=== PATIENT | male | born 1960 | race Caucasian/White ===

== ENCOUNTER 2024-05-14 14:37 | Inpatient (IN) ==
[2024-05-14 15:11] LABS: Basophils # (auto) 0.07 K/uL (0.00-0.20); Basophils % (auto) 0.9 %; Eosinophils # (auto) 0.16 K/uL (0.00-0.50); Hematocrit (blood only) 46.4 % (42.0-52.0); Hemoglobin 15.6 g/dl (14.0-18.0); Immature Granulocytes # (auto) 0.02 K/uL (0.01-0.20); Immature Granulocytes % (auto) 0.2 %; Lymphocytes # (auto) 2.13 K/uL (1.20-3.40); Lymphocytes % (auto) 26.5 %; Mean Corpuscular Hemoglobin 27.9 pg (25.0-34.0); Mean Corpuscular Hgb Conc 33.6 g/dL (32.0-36.0); Mean Platelet Volume 9.8 fL (9.4-12.4); Monocytes # (auto) 0.64 K/uL (0.11-0.59); Neutrophils # (auto) 5.03 K/uL (1.40-6.50); Neutrophils % (auto) 62.4 %; Platelet Count 345 K/uL (130-400); RDW Coefficient of Variation 12.9 % (11.5-14.5); RDW Standard Deviation 38.9 fL (36.4-46.3); Red Blood Count 5.59 M/uL (4.70-6.10); White Blood Count 8.05 K/ul (4.8-10.8)
--- NOTE | 2024-05-14 15:27 | Emergency Department Note ---
Impression & Plan Dyspnea on minimal exertion ED Provider Note NAME: GENO MARIE AGE: 63 SEX: M : 1960 ARRIVES VIA: Walk-In INFORMANT: Patient, ED PROVIDER(S): Dandre Amaro DO CHIEF COMPLAINT: Difficulty breathing HPI: The patient is a 63-year-old male who presented to the emergency department for an evaluation of difficulty breathing. The patient has been noticing problems breathing over the course of the last month. He was seen by his family doctor and treated for an infection. He did not do much better. He is been having worsening breathing especially with any exertion. He denies having any chest pain but he did note some cramping all through his body as well as exertional dyspnea. He was diaphoretic as well. The patient called his family doctor to be seen today but was referred to the emergency department for further evaluation. ROS: See above HPI for pertinent positives & negatives. A total of 10 systems reviewed and were otherwise negative. PAST MEDICAL HISTORY: See Below PAST SURGICAL HISTORY: See Below FAMILY HISTORY: See Below SOCIAL HISTORY: See Below HOME MEDICATIONS: See Below ALLERGIES: See Below VITALS: See Below PHYSICAL EXAMINATION: GENERAL: Patient is awake alert in no acute distress patient is resting comfortably and showing no signs of anxiety EYES: The conjunctivae are clear. The pupils are round and reactive. EARS, NOSE, MOUTH AND THROAT: The nose is without any evidence of any deformity. Mucous membranes are moist. Tongue is midline. NECK: The neck is nontender and supple. RESPIRATORY: Diminished breath sounds are noted in the right lung field compared to the left. There is no tachypnea or conversational dyspnea. CARDIOVASCULAR: Regular rate and rhythm noted there no murmurs rubs or gallops normal S1 normal S2. GASTROINTESTINAL: The abdomen is soft. Abdomen is nontender. MUSCULOSKELETAL/EXTREMITIES: There is no evidence of gross deformity full range of motion is noted in the hips and shoulders. SKIN: There is no obvious evidence of any rash. There are no petechiae, pallor or cyanosis noted. NEUROLOGIC: Patient is awake alert and oriented x3 strength is symmetric patellar reflexes are 2+ bilaterally MEDICAL DECISION MAKING: The patient is a 63-year-old male who presented to the emergency department for an evaluation of difficulty breathing. He was having shortness of breath with exertion. He also noticed some diaphoresis. The patient did have no lower extremity swelling on physical exam or by complaint. He did not have any specific chest pain but given his age and comorbidities it is possible he is describing an anginal equivalent. He does have risk factors for coronary artery disease including hypertension and diet-controlled diabetes. The patient was feeling better at rest. I discussed the patient's laboratory and radiographic studies with him. I also discussed the limitations of the emergency department workup or chest pain with him. Ultimately I did discuss his condition with the on-call [facility] hospitalist. They have agreed to evaluate the patient in the emergency department for further management and disposition. Triage Nursing notes reviewed. Prior medical records reviewed Vital Signs: reviewed and remarkable for elevated blood pressure. Differential diagnosis: Reactive airway disease, pneumonia, pneumothorax, COPD, CHF, infections, cardiac ischemia, pulmonary embolism, musculoskeletal, gastrointestinal, as well as other pathologies. ER treatment provided: See below Diagnostics interpreted by me: ECG: EKG was obtained in the emergency department. My interpretation is normal sinus rhythm at 76 bpm. Nonspecific T wave abnormalities were noted. There was no ectopy. This was compared to a tracing from June 01, 2021. No changes were noted. Cardiac Monitoring: An order was placed for continuous cardiac monitoring. The monitor shows a rate of 82 per minute with sinus rhythm. Laboratory studies: As stated above and show below. Imaging studies: See below. Radiographic imaging was reviewed by myself Consultation(s): I did lizzeth this case with Dr. Fernandez who is on-call for the [facility]. Past Med/Surg History Problem List (Updated 05/14/24 @ 21:34 by Dandre Amaro DO) Dyspnea on minimal exertion (Acute) Medical History Brain aneurysm Surgical History History of cholecystectomy Social History Smoking Status: Never smoker Tobacco Type: Smokeless Tobacco (Dip or Chew) Preferred Language: Austrian Feels Safe at Home: Yes Allergies Allergies Allergy/AdvReac Type Severity Reaction Status Date / Time topiramate [From Topamax] AdvReac Intermediate Hives Unverified 05/14/24 17:54 Home Meds Home Medications Medication Instructions Recorded Confirmed duloxetine 60 mg capsule,delayed 60 mg PO DAILY 06/01/21 05/14/24 release lisinopril 20 mg tablet 20 mg PO DAILY 06/01/21 05/14/24 magnesium oxide 400 mg (241.3 mg 400 mg PO HS 06/01/21 05/14/24 magnesium) tablet metformin 500 mg tablet 500 mg PO BID 06/01/21 05/14/24 ropinirole 0.5 mg tablet 0.5 mg PO DAILY 06/01/21 05/14/24 rosuvastatin 20 mg tablet 20 mg PO DAILY 06/01/21 05/14/24 tramadol 50 mg tablet 50 - 100 mg PO UD 06/01/21 05/14/24 aspirin 81 mg tablet,delayed 81 mg PO DAILY 05/14/24 05/14/24 release atenolol 25 mg tablet 25 mg PO DAILY 05/14/24 05/14/24 cyanocobalamin (vitamin B-12) 1,000 mcg PO DAILY 05/14/24 05/14/24 1,000 mcg tablet (Vitamin B-12) eszopiclone 2 mg tablet 2 mg PO HS 05/14/24 05/14/24 omeprazole 40 mg capsule,delayed 40 mg PO DAILY 05/14/24 05/14/24 release Results & Data (ED) Vital Signs Vital Signs - 24 hr 05/14/24 14:49 05/14/24 16:07 05/14/24 16:25 Temperature 36.7 C Temperature Source Temporal Artery Scan Pulse Rate 77 70 Pulse Rate [Apical] 72 Pulse Rhythm Regular Pulse Strength Normal Respiratory Rate 18 15 Respiratory Effort / Characteristics Non-Labored Spontaneous Respiratory Depth Normal Blood Pressure 112/76 Blood Pressure [Left Arm] 118/77 Blood Pressure Mean 88 Blood Pressure Mean [Left Arm] 90 Blood Pressure Position Sitting Blood Pressure Position [Left Arm] Semi-fowlers Pulse Oximetry 98 96 Oxygen Delivery Method Room Air Room Air Sepsis Recent Fever Within 48 Hours No Sepsis New/Unexplained Change in Mental Status N/A Sepsis Action Taken by Nursing No Action Required 05/14/24 18:01 05/14/24 20:00 05/14/24 21:01 Temperature Temperature Source Pulse Rate 82 Pulse Rate [Apical] 75 77 Pulse Rhythm Pulse Strength Respiratory Rate 18 14 18 Respiratory Effort / Characteristics Respiratory Depth Blood Pressure 161/93 H Blood Pressure [Left Arm] 109/82 116/84 Blood Pressure Mean Blood Pressure Mean [Left Arm] 91 94 Blood Pressure Position Blood Pressure Position [Left Arm] Semi-fowlers Pulse Oximetry 97 96 96 Oxygen Delivery Method Room Air Room Air Room Air Sepsis Recent Fever Within 48 Hours Sepsis New/Unexplained Change in Mental Status Sepsis Action Taken by [facility] Medications Current Medication List: was personally reviewed by me Laboratory Data Attestation: I reviewed the patient's lab results. 05/14/24 15:00 05/14/24 15:00 Lab Results 05/14/24 05/14/24 05/14/24 Range/Units 15:00 15:03 18:11 WBC 8.05 (4.8-10.8) K/ul RBC 5.59 (4.70-6.10) M/uL Hgb 15.6 (14.0-18.0) g/dl Hct 46.4 (42.0-52.0) % MCV 83.0 (80.0-100.0) fL MCH 27.9 (25.0-34.0) pg MCHC 33.6 (32.0-36.0) g/dL RDW Std Deviation 38.9 (36.4-46.3) fL RDW Coeff of Zeenat 12.9 (11.5-14.5) % Plt Count 345 (130-400) K/uL MPV 9.8 (9.4-12.4) fL Immature Gran % (Auto) 0.2 % Neut % (Auto) 62.4 % Lymph % (Auto) 26.5 % [place] % (Auto) 8.0 % Eos % (Auto) 2.0 % Baso % (Auto) 0.9 % Neut # (Auto) 5.03 (1.40-6.50) K/uL Lymph # (Auto) 2.13 (1.20-3.40) K/uL [place] # (Auto) 0.64 H (0.11-0.59) K/uL Eos # (Auto) 0.16 (0.00-0.50) K/uL Baso # (Auto) 0.07 (0.00-0.20) K/uL Immature Gran # (Auto) 0.02 (0.01-0.20) K/uL D-Dimer 1090 H* (0-500) ug/L FEU Sodium 134 L (136-145) mmol/L Potassium 4.5 (3.5-5.1) mmol/L Chloride 99 (98-107) mmol/L Carbon Dioxide 26 (21-32) mmol/L Anion Gap 9 (3-11) BUN 15 (6-23) mg/dl Creatinine 1.29 (0.6-1.4) mg/dl Est Cr Clr Drug Dosing 70.0 ml/min eGFR 62.30 BUN/Creatinine Ratio 11.6 (10-20) Glucose 104 H (70-99(Fasting)) mg/dl Calcium 9.8 (8.6-10.3) mg/dl Magnesium 2.2 (1.7-2.4) mg/dl Total Bilirubin 0.8 (0.2-1.0) mg/dl AST 35 (13-39) U/L ALT 34 (7-52) U/L Alkaline Phosphatase 85 (34-104) U/L Troponin I High Sens 7.3 4.9 (0-20) pg/ml Total Protein 8.0 (6.0-8.3) gm/dl Albumin 4.5 (3.4-5.0) gm/dl Globulin 3.5 (2.5-4.0) gm/dl Albumin/Globulin Ratio 1.3 (0.9-2) Adenovirus (PCR) Not Detected (NotDetected) B. pertussis DNA (PCR) Not Detected (NotDetected) B.parapertussis DNA PCR Not Detected (NotDetected) C. pneumoniae DNA (PCR) Not Detected (NotDetected) Coronavirus OC43 (PCR) Not Detected (NotDetected) Coronavirus HKU1 (PCR) Not Detected (NotDetected) Coronavirus 229E (PCR) Not Detected (NotDetected) SARS-CoV-2 (PCR) Not Detected (NotDetected) Coronavirus NL63 (PCR) Not Detected (NotDetected) Human Metapneumovir PCR Not Detected (NotDetected) Influenza Type A (PCR) Not Detected (NotDetected) Influenza Type B (PCR) Not Detected (NotDetected) M. pneumoniae (PCR) Not Detected (NotDetected) Parainfluenza 1 (PCR) Not Detected (NotDetected) Parainfluenza 2 (PCR) Not Detected (NotDetected) Parainfluenza 3 (PCR) Not Detected (NotDetected) Parainfluenza 4 (PCR) Not Detected (NotDetected) RSV (PCR) Not Detected (NotDetected) Entero/Rhino (PCR) Not Detected (NotDetected) Administered Medications Discontinued Medications Ioversol (Optiray 320 125ml) 118 ml IV ONCE ONE Stop: 05/14/24 17:10 Last Admin: 05/14/24 17:09 Dose: 118 ml Documented By: ARIANNA Imaging Data Attestation: I personally reviewed and interpreted this imaging study as follows: My Impression: 1 view chest x-ray was obtained in the emergency department. My interpretation is no free air or definite infiltrate, final report below. Radiologist's Impression: Chest X-Ray 05/14/24 14:53 XR chest 1V portable CLINICAL HISTORY: sob TECHNIQUE: Single frontal radiograph of the chest was obtained. Comparison: None available at the time of this dictation. FINDINGS: Battery-powered device is noted in the chest wall. The cardiomediastinal silhouette is normal. The lungs are clear. No evidence of pleural effusion or pneumothorax. IMPRESSION: No acute abnormalities and in particular no radiographic evidence of pneumonia. ACT 112: Negative or not required by law. Electronically signed by: Cristian Ryan M.D. 05/14/2024 3:44 PM Chest CTA 05/14/24 16:30 EXAM: CT Angiography Chest With Intravenous Contrast INDICATION: Weakness. Diaphoresis. TECHNIQUE: Axial computed tomographic angiography images of the chest with intravenous contrast. Sagittal and coronal reformatted images were created and reviewed. This CT exam was performed using one or more of the following dose reduction techniques: automated exposure control, adjustment of the mA and/or kV according to patient size, and/or use of iterative reconstruction technique. MIP reconstructed images were created and reviewed. CONTRAST: 118ml of Optiray 320 was administered intravenously. COMPARISON: No relevant prior studies available. FINDINGS: Pulmonary arteries: No abnormality noted. No pulmonary embolism. Aorta: No acute change noted. No thoracic aortic aneurysm or dissection. Lungs and pleural spaces: Diffuse 2 to 3 mm pleural and subpleural nodules noted throughout both lungs. No layering pleural effusion. No pneumothorax. Scattered calcified granulomata noted in the lungs. There is mild dependent atelectasis in the lower lobes. Heart: No abnormality noted. No cardiomegaly. No significant pericardial effusion. No evidence of RV dysfunction. Bones/joints: Old left rib fractures. Degenerative changes in the spine. Soft tissues: No abnormality noted. Lymph nodes: There is a 1.5 cm short axis dimension subcarinal node with eccentric calcification. No pathologically enlarged nodes. IMPRESSION: 1. No pulmonary embolus noted. 2. There are nonspecific pleural and subpleural nodules. There are also scattered granulomas and a partially calcified subcarinal lymph node. All changes could reflect previous infection. In the absence of a prior study to compare, follow-up recommended in 6 to 12 months. ACT 112: Negative or not required by law. Electronically signed by Estela Ortiz 05-14-2024 5:[address] 05/14/24 16:30 EXAM: CT Head Without Intravenous Contrast INDICATION: Weakness. TECHNIQUE: Axial computed tomography images of the head/brain without intravenous contrast. Sagittal and/or coronal reformats are provided. Sagittal and coronal reformatted images were created and reviewed. This CT exam was performed using one or more of the following dose reduction techniques: automated exposure control, adjustment of the mA and/or kV according to patient size, and/or use of iterative reconstruction technique. COMPARISON: 06/01/2021 FINDINGS: Limitations: None. Brain and extra-axial spaces: No abnormality noted. No hemorrhage. No significant white matter disease. No edema. No ventriculomegaly. Bones/joints: No acute changes. Soft tissues: No significant abnormality noted. Vasculature: Artifact from aneurysm clip in the region of the anterior communicating artery limits assessment of surrounding structures. Sinuses: Mild mucosal thickening right ethmoid air cells. No sinus fluid. Mastoid air cells: No mastoid effusion. Orbits: No significant abnormality noted. IMPRESSION: 1. Mild mucosal thickening right ethmoid air cells. No sinus fluid. 2. No acute change in the brain. ACT 112: Negative or not required by law. Electronically signed by Estela Ortiz 05-14-2024 5:27 PM Venous Doppler Study 05/14/24 19:19 Exam(s): US VENOUS BILATERAL LOWER EXTREMITIES EXAM: US Duplex Bilateral Lower Extremities Veins CLINICAL HISTORY: Reason for exam: elevated d dimer, leg pain. TECHNIQUE: Real-time duplex ultrasound scan of the bilateral lower extremity veins integrating B-mode two-dimensional vascular structure, Doppler spectral analysis, color flow Doppler imaging and compression. COMPARISON: No relevant prior studies available. FINDINGS: Right deep veins: Unremarkable. The visualized deep veins of the right lower extremity are compressible with color flow. No visualized thrombus. Right superficial veins: Unremarkable. Left deep veins: Unremarkable. The visualized deep veins of the left lower extremity are compressible with color flow. No visualized thrombus. Left superficial veins: Unremarkable. Soft tissues: No acute findings. IMPRESSION: No evidence of deep vein thrombosis in the bilateral lower extremities. Electronically signed by: Joshua Puentes MD 05/14/24 21:24 PM Discharge Plan Visit Data Chief Complaint: Illness Stated Complaint: WEAK, LETHARGIC, CRAMPS, HEADACHES ED Provider: Dandre Amaro Discharge Problem: Dyspnea on minimal exertion Patient Disposition: Admitted As Inpatient Discharge Instructions Interventions: ED Discharge Assessment Last Done: 05/14/24 21:01 Prescriptions Prescriptions: No Action metformin 500 mg tablet 500 mg PO BID lisinopril 20 mg tablet 20 mg PO DAILY magnesium oxide 400 mg (241.3 mg magnesium) tablet 400 mg PO HS rosuvastatin 20 mg tablet 20 mg PO DAILY tramadol 50 mg tablet 50 - 100 mg PO UD Rx Instructions: Take 50mg by mouth in the morning and 100mg by mouth in the evening. ropinirole 0.5 mg tablet 0.5 mg PO DAILY duloxetine 60 mg capsule,delayed release(DR/EC) 60 mg PO DAILY atenolol 25 mg tablet 25 mg PO DAILY cyanocobalamin (vitamin B-12) [Vitamin B-12] 1,000 mcg Tablet 1,000 mcg PO DAILY omeprazole 40 mg capsule,delayed release(DR/EC) 40 mg PO DAILY aspirin 81 mg Tablet,Delayed Release (Dr/Ec) 81 mg PO DAILY eszopiclone 2 mg tablet 2 mg PO HS
[2024-05-14 15:36] LABS: Albumin Globulin Ratio 1.3 (0.9-2); Albumin Level 4.5 gm/dl (3.4-5.0); BUN Creatinine Ratio 11.6 (10-20); Bilirubin,Total 0.8 mg/dl (0.2-1.0); Calcium 9.8 mg/dl (8.6-10.3); Globulin 3.5 gm/dl (2.5-4.0); Magnesium 2.2 mg/dl (1.7-2.4); Potassium 4.5 mmol/L (3.5-5.1)
[2024-05-14 15:41] LABS: Troponin I High Sensitivity 7.3 pg/ml (0-20)
--- NOTE | 2024-05-14 15:45 | XRay Report ---
XR chest 1V portable CLINICAL HISTORY: sob TECHNIQUE: Single frontal radiograph of the chest was obtained. Comparison: None available at the time of this dictation. FINDINGS: Battery-powered device is noted in the chest wall. The cardiomediastinal silhouette is normal. The jaren ngs are clear. No evidence of pleural effusion or pneumothorax. IMPRESSION: No acute abnormalities and in particular no radiographic evidence of pneumonia. ACT 112: Negative or not required by law. Electronically signed by: Cristian Ryan M.D. 05/14/2024 3:44 PM
[2024-05-14 15:58] LABS: Adenovirus PCR Not Detected (NotDetected); Bordetella parapertussis PCR Not Detected (NotDetected); Bordetella pertussis PCR Not Detected (NotDetected); Chlamydia pneumoniae PCR Not Detected (NotDetected); Coronavirus 229E PCR Not Detected (NotDetected); Coronavirus CoV-2 (COVID19)PCR Not Detected (NotDetected); Coronavirus HKU1 PCR Not Detected (NotDetected); Coronavirus NL63 PCR Not Detected (NotDetected); Coronavirus OC43PCR Not Detected (NotDetected); Human Metapneumovirus PCR Not Detected (NotDetected); Influenza A PCR Not Detected (NotDetected); Influenza B PCR Not Detected (NotDetected); Mycoplasma pneumoniae PCR Not Detected (NotDetected); Parainfluenza Virus 1 PCR Not Detected (NotDetected); Parainfluenza Virus 2 PCR Not Detected (NotDetected); Parainfluenza Virus 3 PCR Not Detected (NotDetected); Parainfluenza Virus 4 PCR Not Detected (NotDetected); Respiratory Syncytial VirusPCR Not Detected (NotDetected); Rhinovirus/Enterovirus PCR Not Detected (NotDetected)
[2024-05-14 16:21] LABS: D Dimer 1090 ug/L FEU (0-500)
[2024-05-14] MEDS: OPTIRAY 320 125ml IV ONE (17:09)
--- NOTE | 2024-05-14 17:23 | Electrocardiogram Report ---
Test Reason : Blood Pressure : */* mmHG Vent. Rate : 76 BPM Atrial Rate : 76 BPM P-R Int : 180 ms QRS Dur : 86 ms QT Int : 364 ms P-R-T Axes : 43 44 54 degrees QTcB Int : 409 ms Normal sinus rhythm Nonspecific T wave abnormality Abnormal ECG When compared with ECG of 01-Jun-2021 08:41, Nonspecific T wave abnormality now evident in Lateral leads Confirmed by Alexys Martino ([id number]) on 05/14/2024 5:22:59 PM Referred By: REFERRED SELF Confirmed By: Aleyxs Martino
--- NOTE | 2024-05-14 17:27 | CT Scan Report ---
EXAM: CT Head Without Intravenous Contrast INDICATION: Weakness. TECHNIQUE: Axial computed tomography images of the head/brain without intravenous contrast. Sagittal and/or coronal reformats are provided. Sagittal and coronal reformatted images were created and reviewed. This CT exam was performed using one or more of the following dose reduction techniques: automated exposure control, adjustment of the mA and/or kV according to patient size, and/or use of iterative reconstruction technique. COMPARISON: 06/01/2021 FINDINGS: Limitations: None. Brain and extra-axial spaces: No abnormality noted. No hemorrhage. No significant white matter disease. No edema. No ventriculomegaly. Bones/joints: No acute changes. Soft tissues: No significant abnormality noted. Vasculature: Artifact from aneurysm clip in the region of the anterior communicating artery limits assessment of surrounding structures. Sinuses: Mild mucosal thickening right ethmoid air cells. No sinus fluid. Mastoid air cells: No mastoid effusion. Orbits: No significant abnormality noted. IMPRESSION: 1. Mild mucosal thickening right ethmoid air cells. No sinus fluid. 2. No acute change in the brain. ACT 112: Negative or not required by law. Electronically signed by Estela Ortiz 05-14-2024 5:27 PM
--- NOTE | 2024-05-14 17:35 | CT Scan Report ---
EXAM: CT Angiography Chest With Intravenous Contrast INDICATION: Weakness. Diaphoresis. TECHNIQUE: Axial computed tomographic angiography images of the chest with intravenous contrast. Sagittal and coronal reformatted images were created and reviewed. This CT exam was performed using one or more of the following dose reduction techniques: automated exposure control, adjustment of the mA and/or kV according to patient size, and/or use of iterative reconstruction technique. MIP reconstructed images were created and reviewed. CONTRAST: 118ml of Optiray 320 was administered intravenously. COMPARISON: No relevant prior studies available. FINDINGS: Pulmonary arteries: No abnormality noted. No pulmonary embolism. Aorta: No acute change noted. No thoracic aortic aneurysm or dissection. Lungs and pleural spaces: Diffuse 2 to 3 mm pleural and subpleural nodules noted throughout both lungs. No layering pleural effusion. No pneumothorax. Scattered calcified granulomata noted in the lungs. There is mild dependent atelectasis in the lower lobes. Heart: No abnormality noted. No cardiomegaly. No significant pericardial effusion. No evidence of RV dysfunction. Bones/joints: Old left rib fractures. Degenerative changes in the spine. Soft tissues: No abnormality noted. Lymph nodes: There is a 1.5 cm short axis dimension subcarinal node with eccentric calcification. No pathologically enlarged nodes. IMPRESSION: 1. No pulmonary embolus noted. 2. There are nonspecific pleural and subpleural nodules. There are also scattered granulomas and a partially calcified subcarinal lymph node. All changes could reflect previous infection. In the absence of a prior study to compare, follow-up recommended in 6 to 12 months. ACT 112: Negative or not required by law. Electronically signed by Estela Ortiz 05-14-2024 5:35 PM
--- NOTE | 2024-05-14 19:10 | History & Physical Report ---
Date of Service May 14, 2024 Assessment & Plan (1) Dyspnea on minimal exertion: Plan: 63 year old male with history of Paroxysmal Atrial fibrillation, s/p Loop recorder placement, HTN, DM 2, SEN on CPAP, History of brain aneurysm s/p coiling 2006, presenting with progressive shortness of breath x 2 weeks. Dyspnea with minimal exertion Rule out underlying CAD, CHF Troponin negative x 2 EKG showing nonspecific T wave flattening in the lateral leads D-dimer elevated 1030, CT chest negative for PE, Doppler ultrasound of the legs pending Echocardiogram: Ordered Continue usual aspirin, atenolol, lisinopril, rosuvastatin Cardiology was consulted N.p.o. postmidnight History of paroxysmal A-fib Status post loop recorder placement last year Currently in sinus rhythm Continue atenolol and aspirin Diabetes type 2 Hold usual metformin Placed on insulin sliding scale A1c in the morning Obstructive sleep apnea On CPAP at home, will order Continue usual insomnia medications History of brain aneurysm status post coiling 2006 DVT prophylaxis SCDs for now Full code Disposition Lives at home with significant other Avinash Fernandez MD History of Present Illness Chief Complaint: progressive dyspnea on exertion x 2 weeks Primary Care Provider: Luis Jules MD 63 year old male with history of Paroxysmal Atrial fibrillation, s/p Loop recorder placement, HTN, DM 2, SEN on CPAP, History of brain aneurysm s/p coiling 2006, presenting with progressive shortness of breath x 2 weeks. Patient follows with a Cd Technician for an episode of A fib that was diagnosed through a loop recorder placed about a year ago after having symptoms of dizziness. He takes Atenolol and Aspirin 81mg po daily. He states that he has been having progressive shortness of breath for the past 2 weeks, even with minimal exertion. During , while carving turkey, patient developed shortness of breath- "gasping", associated with profuse diaphoresis and pallor, according to his . Resting alleviates the shortness of breath. Patient prompted by PCP to go to ER for evaluation. At the ER, patient was received with stable vital signs. Troponin negative EKG showing nonspecific T wave flattening in the lateral leads D-dimer elevated at 1090 CT scan of the chest: Negative for PE, positive for nonspecific pleural and subpleural nodules, scattered granulomas Hospitalist consulted for cardiac evaluation. On exam, patient seen resting in bed, comfortable, not in distress Denies active chest pain, shortness of breath, palpitations, dizziness Allergies Allergy/AdvReac Type Severity Reaction Status Date / Time topiramate [From Topamax] AdvReac Intermediate Hives Unverified 05/14/24 17:54 Home Medications Medication Instructions Recorded Confirmed Type duloxetine 60 mg capsule,delayed 60 mg PO DAILY 06/01/21 05/14/24 History release lisinopril 20 mg tablet 20 mg PO DAILY 06/01/21 05/14/24 History magnesium oxide 400 mg (241.3 mg 400 mg PO HS 06/01/21 05/14/24 History magnesium) tablet metformin 500 mg tablet 500 mg PO BID 06/01/21 05/14/24 History ropinirole 0.5 mg tablet 0.5 mg PO DAILY 06/01/21 05/14/24 History rosuvastatin 20 mg tablet 20 mg PO DAILY 06/01/21 05/14/24 History tramadol 50 mg tablet 50 - 100 mg PO UD 06/01/21 05/14/24 History aspirin 81 mg tablet,delayed 81 mg PO DAILY 05/14/24 05/14/24 History release atenolol 25 mg tablet 25 mg PO DAILY 05/14/24 05/14/24 History cyanocobalamin (vitamin B-12) 1,000 mcg PO DAILY 05/14/24 05/14/24 History 1,000 mcg tablet (Vitamin B-12) eszopiclone 2 mg tablet 2 mg PO HS 05/14/24 05/14/24 History omeprazole 40 mg capsule,delayed 40 mg PO DAILY 05/14/24 05/14/24 History release Past Med/Surg History Problem List (Updated 05/14/24 @ 19:08 by Avinash Fernandez MD) Dyspnea on minimal exertion Medical History Brain aneurysm Surgical History History of cholecystectomy Social History Smoking Status: Never smoker Tobacco Type: Smokeless Tobacco (Dip or Chew) Preferred Language: Algerian Feels Safe at Home: Yes Review of Systems Review of Systems: all noted and negative except for above Physical Exam Physical Exam: General- oriented x 3, not in distress, speaks in sentences with no effort or accessory muscle use Head- atraumatic Eyes- PERRL, EOMI, anicteric ENT- oropharynx clear Neck- supple, no JVD, no adenopathy, no thyromegaly; carotids +2/2, no bruits appreciated Lungs- clear to auscultation bilaterally, no rales/wheezes Heart- normal rate, regular rhythm; no murmur, no gallop, no rub appreciated Abdomen- normal bowel sounds, nondistended, soft, nontender, no masses or hepatosplenomegaly Extremities- no pretibial edema, no calf tenderness; peripheral pulses intact Neuro- alert, oriented x 3; CN 2-12 grossly intact; motor 5/5 bilaterally;sensation 100% on all extremities; no other gross focal neurologic deficits Skin- warm & dry Results & Data Results & Data Vital Signs (Past 12 Hours) Vital Signs Temp Pulse Pulse Resp BP BP Pulse Ox 05/14/24 18:01 75 18 109/82 97 05/14/24 16:25 72 15 118/77 96 05/14/24 16:07 70 05/14/24 14:49 36.7 C 77 18 112/76 98 O2 Del Method 05/14/24 18:01 Room Air 05/14/24 16:25 Room Air 05/14/24 16:07 05/14/24 14:49 Room Air all noted and reviewed including below Code Status & VTE Plan VTE Prophylaxis Plan VTE Prophylaxis will be ordered: Yes
--- NOTE | 2024-05-14 21:25 | Ultrasound Report ---
Exam(s): US VENOUS BILATERAL LOWER EXTREMITIES EXAM: US Duplex Bilateral Lower Extremities Veins CLINICAL HISTORY: Reason for exam: elevated d dimer, leg pain. TECHNIQUE: Real-time duplex ultrasound scan of the bilateral lower extremity veins integrating B-mode two-dimensional vascular structure, Doppler spectral analysis, color flow Doppler imaging and compression. COMPARISON: No relevant prior studies available. FINDINGS: Right deep veins: Unremarkable. The visualized deep veins of the right lower extremity are compressible with color flow. No visualized thrombus. Right superficial veins: Unremarkable. Left deep veins: Unremarkable. The visualized deep veins of the left lower extremity are compressible with color flow. No visualized thrombus. Left superficial veins: Unremarkable. Soft tissues: No acute findings. IMPRESSION: No evidence of deep vein thrombosis in the bilateral lower extremities. Electronically signed by: Joshua Puentes MD 05/14/24 21:24 PM
[2024-05-14] MEDS ORDERED: ACETAMINOPHEN 325 MG TAB PO PRN (21:34)
[2024-05-14] MEDS ORDERED: GLUCAGON FOR INJ 1 MG VIAL SQ PRN (21:34)
[2024-05-14] MEDS ORDERED: GLUCOSE 40% GEL 15 GM TUBE PO PRN (21:34)
[2024-05-14] MEDS ORDERED: CARBOHYDRATES FOR HYPOGLYCEMIA PO PRN (21:34)
[2024-05-14] MEDS ORDERED: DEXTROSE 50% 50 ML SYRINGE IV PRN (21:34)
[2024-05-14] MEDS ORDERED: GLUCOSE 10 TAB/TUBE PO PRN (21:34)
[2024-05-14] MEDS: rOPINIRole HCL 0.25 MG TABLET PO SCH (21:49)
[2024-05-14] MEDS: traMADol HCL 50 MG TABLET PO SCH (21:49)
[2024-05-14] MEDS: MAGNESIUM OXIDE 400 MG TAB PO SCH (21:50)
[2024-05-14] MEDS: ESZOPICLONE 1 MG TAB PO SCH (21:57)
[2024-05-14] MEDS: INSULIN ASPART PER UNIT CHARGE SC SCH (23:50)
[2024-05-15 06:23] LABS: Basophils # (auto) 0.06 K/uL (0.00-0.20); Basophils % (auto) 1.1 %; Eosinophils # (auto) 0.15 K/uL (0.00-0.50); Eosinophils % (auto) 2.8 %; Hematocrit (blood only) 41.6 % (42.0-52.0); Hemoglobin 14.3 g/dl (14.0-18.0); Immature Granulocytes # (auto) 0.02 K/uL (0.01-0.20); Immature Granulocytes % (auto) 0.4 %; Lymphocytes # (auto) 1.59 K/uL (1.20-3.40); Lymphocytes % (auto) 29.4 %; Mean Corpuscular Hemoglobin 28.3 pg (25.0-34.0); Mean Corpuscular Hgb Conc 34.4 g/dL (32.0-36.0); Mean Corpuscular Volume 82.4 fL (80.0-100.0); Mean Platelet Volume 10.1 fL (9.4-12.4); Monocytes # (auto) 0.52 K/uL (0.11-0.59); Monocytes % (auto) 9.6 %; Neutrophils # (auto) 3.06 K/uL (1.40-6.50); Neutrophils % (auto) 56.7 %; Platelet Count 257 K/uL (130-400); RDW Coefficient of Variation 12.7 % (11.5-14.5); RDW Standard Deviation 38.3 fL (36.4-46.3); Red Blood Count 5.05 M/uL (4.70-6.10)
[2024-05-15 06:43] LABS: BUN Creatinine Ratio 14.7 (10-20); Calcium 9.2 mg/dl (8.6-10.3); Creatinine Clr Calc Pharmacy 77.6 ml/min; Potassium 4.4 mmol/L (3.5-5.1)
[2024-05-15 06:50] LABS: Troponin I High Sensitivity 5.5 pg/ml (0-20)
[2024-05-15 07:20] LABS: Estimated Average Glucose 163 mg/dl; Hemoglobin A1C 7.3 % (4.5-5.6)
--- NOTE | 2024-05-15 09:12 | Cardiology Consultation ---
Date of Consultation May 15, 2024 Assessment & Plan (1) WINKLER (dyspnea on exertion): (2) HTN (hypertension): (3) Dyslipidemia, goal LDL below 70: (4) Type II diabetes mellitus: (5) Abnormal EKG: Plan 63-year-old male presenting with progressive exertional dyspnea precluding activities of daily living, associated with significant diaphoresis and observed pallor. Patient with multiple cardiac risk factors including hypertension, dyslipidemia, type 2 diabetes mellitus, obesity, inactivity, past tobacco use. CT imaging with observed coronary artery atherosclerosis. EKG with nonspecific T wave abnormality. High-sensitivity troponin negative. Echo with preserved LV systolic function without wall motion abnormality. Options of management discussed. Patient NPO for further diagnostic cardiac catheterization; risks and benefits discussed. Supervising Physician Co-Signing Physician Notes Patient was seen and personally examined. Full assessment and plan as outlined by advanced provider above. Care and management discussed personally and endorsed. 63-year-old male with cardiovascular risk factors of hypertension, type 2 diabetes mellitus, hyperlipidemia presents noting gradually progressive exertional dyspnea now becoming limiting in a pattern strongly suggestive of exertional angina. Most recent episode occurring at very low level exertion with associated diaphoresis and lightheadedness. Now dyspneic with minimal activities of ADLs. CTA of chest unremarkable other than coronary calcification. Initial EKG and cardiac enzymes without injury pattern Poor candidate for stress testing Recommendations as above proceed with diagnostic coronary angiography. History of Present Illness Reason for Consultation: Dyspnea on exertion Requesting Physician: [facility] Hospitalist Service, Dr. Fernandez [facility] Jeong [facility] History of Present Illness Giovanni Greenwood is a 63-year-old male who presented to [facility] on May 14, 2024 with complaints of progressive exertional dyspnea associated with diaphoresis and observed pallor. Patient describes progressive exertional dyspnea over the past few months, initially observed by when walking the dog, now occurring with minimal activity such as showering, most recently when attempting to carve the turkey for their holiday meal. Dyspnea is associated with significant diaphoresis and observed pallor, requiring him to sit down. No associated chest discomfort though he has had an occasional left- sided chest discomfort occurring without rhyme or reason. + Recent URI treated with a 7-day course of unknown antibiotic, all URI symptoms resolving post antibiotic course. No resting or nocturnal dyspnea. No orthopnea, PND, or increased peripheral edema, chronically with mild observed edema at the end of the day that resolves with elevation or overnight. No syncope. No current fevers or chills. No night sweats. No hemoptysis, melena, hematochezia, or hematuria. Data: EKG on presentation revealed normal sinus rhythm at 76 bpm with nonspecific T wave abnormality. High-sensitivity troponin negative x 3: 7.3 -> 4.9 -> 5.5 pg/mL Chest x-ray without acute abnormality Elevated D-dimer led to chest CTA, negative for PE, revealing nonspecific pleural and subpleural nodules. Coronary artery atherosclerosis observed on personal review of the CT Lower extremity venous duplex negative for DVT head grinder reveals sinus throughout, heart rates in the 60s and 70s Resting echocardiography this morning revealed a normal size left ventricle, with mild concentric LVH, normal LV wall motion, EF 60 to 65%. Grade 1 diastolic dysfunction observed. There was mild focal calcification of the noncoronary cusp of the aortic valve, without aortic valve stenosis or insufficiency. Aortic root was described as mildly dilated. Past Medical and Surgical History Prior complaints of dizziness/near syncope leading to [employer] loop recorder implantation, [facility] Paroxysmal atrial fibrillation observed shortly after loop recorder implantation Hypertension Dyslipidemia Type 2 diabetes mellitus Obstructive sleep apnea, CPAP therapy History of brain aneurysm in 2006, status post coiling Status post arthroscopic right knee surgery Family History: Mother had cancer, passing after a bout of pneumonia. Father had hypertension and dyslipidemia, atrial fibrillation, passing at the age of 93. Two brothers, oldest with a pacemaker Social History: Chronic smokeless tobacco user, previously 5 cans/week, currently 3 cans/week. Notes smoking cigarettes for 2-week period of time when attempting to quit chewing snuff. Quit drinking alcohol in 2006. . 2 children. 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 Allergies Allergy/AdvReac Type Severity Reaction Status Date / Time topiramate [From [employer]] AdvReac Intermediate Hives Unverified 05/14/24 17:54 Home Medications Medication Instructions Recorded Confirmed Type duloxetine 60 mg capsule,delayed 60 mg PO DAILY 06/01/21 05/14/24 History release lisinopril 20 mg tablet 20 mg PO DAILY 06/01/21 05/14/24 History magnesium oxide 400 mg (241.3 mg 400 mg PO HS 06/01/21 05/14/24 History magnesium) tablet metformin 500 mg tablet 500 mg PO BID 06/01/21 05/14/24 History ropinirole 0.5 mg tablet 0.5 mg PO DAILY 06/01/21 05/14/24 History rosuvastatin 20 mg tablet 20 mg PO DAILY 06/01/21 05/14/24 History tramadol 50 mg tablet 50 - 100 mg PO UD 06/01/21 05/14/24 History aspirin 81 mg tablet,delayed 81 mg PO DAILY 05/14/24 05/14/24 History release atenolol 25 mg tablet 25 mg PO DAILY 05/14/24 05/14/24 History cyanocobalamin (vitamin B-12) 1,000 mcg PO DAILY 05/14/24 05/14/24 History 1,000 mcg tablet (Vitamin B-12) eszopiclone 2 mg tablet 2 mg PO HS 05/14/24 05/14/24 History omeprazole 40 mg capsule,delayed 40 mg PO DAILY 05/14/24 05/14/24 History release Patient History Medical History Brain aneurysm Surgical History History of cholecystectomy Social History Smoking Status: Former smoker Tobacco Type: Smokeless Tobacco (Dip or Chew) Second Hand Exposure: No; Do You Dip or Chew Tobacco: Yes; Hx Alcohol Use: No Hx Substance Use: No Preferred Language: Sierra Leonean Communication Ability: Effective Licensed Reactor Operator Required: No Beliefs That Will Affect Care: None Current Living Situation: Spouse Other Information That Helps Us Care for You: No Feels Safe at Home: Yes Safety Concerns: Feels Safe At This Time Assistive Devices Comment: 3 crowns Review of Systems Review of Systems: Complete Review of Systems: Constitutional: Recent URI, resolved. No current fevers, chills, or night sweats. HEENT: Brain aneurysm, status post coiling in 2006. Status post cataract extraction. No macular degeneration. No glaucoma. No history of amaurosis fugax. Pulmonary: No history of asthma, emphysema, or COPD. No history of PE. Cardiac: PAF. No history of NM, CAD, CHF, heart murmur, rheumatic fever, or scarlet fever. GI/Abd: GERD. + Chronic dysphagia. No melana or hematochezia. Prior history of transient kidney injury, resolved. No liver problems. No history of pancreatic issues. Vascular: No history of carotid artery disease, AAA, or lower extremity claudication/PAD. Hematologic: No coagulation disorder, anemia, or abnormal bleeding. Musculoskeletal: Arthritis, chronic right knee pain Skin: No rash. Neurologic: No history of TIA/CVA. No history of seizure disorder. Male : Nocturia. Endocrine: T2DM. Complete Review of Systems is as stated above, negative, or noncontributory Physical Exam Physical Exam: General: A&Ox3. NAD. HENT: Normocephalic. Atraumatic. Eyes: PER. Conjunctiva pink, sclera clear. Neck: No carotid bruits. No JVD. No HJR. Heart: RRR. No murmur. No rub. No gallop. PMI is nondisplaced. Lungs: Clear to auscultation. Abdomen: +BS. Soft. Nontender. No masses or organomegaly. Extremities: No clubbing, cyanosis, or edema. Limited neurological examination is without focal deficits. Pulses: radial=2/4, posterior tibial=1-2/4. Results & Data Vital Signs (Past 12 Hours) Vital Signs Temp Pulse Pulse Resp BP Pulse Ox O2 Del Method 05/15/24 08:21 36.5 C 70 18 131/73 96 Room Air 05/15/24 07:28 61 05/15/24 07:20 95 05/15/24 03:00 36.8 C 79 18 100/62 95 Room Air 05/15/24 00:00 78 05/14/24 23:44 79 19 95 05/14/24 22:00 Room Air 05/14/24 21:14 36.7 C 79 130/83 97 Room Air 05/14/24 21:12 86 Laboratory Results Cardiac Enzymes 05/14/24 05/14/24 05/15/24 Range/Units 15:00 18:11 06:06 AST 35 (13-39) U/L Troponin I High Sens 7.3 4.9 5.5 (0-20) pg/ml CBC 05/14/24 05/15/24 Range/Units 15:00 06:06 WBC 8.05 5.40 (4.8-10.8) K/ul RBC 5.59 5.05 (4.70-6.10) M/uL Hgb 15.6 14.3 (14.0-18.0) g/dl Hct 46.4 41.6 L (42.0-52.0) % Plt Count 345 257 (130-400) K/uL Neut # (Auto) 5.03 3.06 (1.40-6.50) K/uL Lymph # (Auto) 2.13 1.59 (1.20-3.40) K/uL Ramsey # (Auto) 0.64 H 0.52 (0.11-0.59) K/uL Eos # (Auto) 0.16 0.15 (0.00-0.50) K/uL Baso # (Auto) 0.07 0.06 (0.00-0.20) K/uL Comprehensive Metabolic Panel 05/14/24 05/15/24 Range/Units 15:00 06:06 Sodium 134 L 134 L (136-145) mmol/L Potassium 4.5 4.4 (3.5-5.1) mmol/L Chloride 99 102 (98-107) mmol/L Carbon Dioxide 26 24 (21-32) mmol/L BUN 15 17 (6-23) mg/dl Creatinine 1.29 1.16 (0.6-1.4) mg/dl Glucose 104 H 119 H (70-99(Fasting)) mg/dl Calcium 9.8 9.2 (8.6-10.3) mg/dl AST 35 (13-39) U/L ALT 34 (7-52) U/L Alkaline Phosphatase 85 (34-104) U/L Total Protein 8.0 (6.0-8.3) gm/dl Albumin 4.5 (3.4-5.0) gm/dl Intake and Output 05/14/24 05/15/24 05/15/24 22:59 06:59 14:59 Other: Other Intake Source npo Weight 107.9 kg 107.9 kg Weight Measurement Method Standing Scale
--- NOTE | 2024-05-15 11:21 | Pre Anesthesia Assessment ---
Date of Service May 15, 2024 Pre Sedation Assessment Vital Signs Temp Pulse Pulse Resp BP BP Pulse Ox 05/15/24 08:21 36.5 C 70 18 131/73 96 05/15/24 08:00 70 14 114/78 95 05/15/24 07:28 61 05/15/24 07:20 95 05/15/24 03:00 36.8 C 79 18 100/62 95 05/15/24 00:00 78 05/14/24 23:44 79 19 95 05/14/24 22:00 05/14/24 21:14 36.7 C 79 130/83 97 05/14/24 21:12 86 05/14/24 21:01 82 18 161/93 H 96 05/14/24 20:00 77 14 116/84 96 05/14/24 18:01 75 18 109/82 97 05/14/24 16:25 72 15 118/77 96 05/14/24 16:07 70 05/14/24 14:49 36.7 C 77 18 112/76 98 O2 Del Method 05/15/24 08:21 Room Air 05/15/24 08:00 Room Air 05/15/24 07:28 05/15/24 07:20 05/15/24 03:00 Room Air 05/15/24 00:00 05/14/24 23:44 05/14/24 22:00 Room Air 05/14/24 21:14 Room Air 05/14/24 21:12 05/14/24 21:01 Room Air 05/14/24 20:00 Room Air 05/14/24 18:01 Room Air 05/14/24 16:25 Room Air 05/14/24 16:07 05/14/24 14:49 Room Air Cardiovascular RRR, no murmur, no edema Respiratory normal respiratory effort, lungs clear to auscultation Pre-Sedation Airway Assessment Smoking Status: Former smoker Hx Sleep Apnea: No Short, Thick Neck: No Thyromental Distance: > or= 3.5 Finger Breadths Oral Cavity: + WNL Mallampati Class: III ASA: ASA3 NPO Status Date of Last Intake of Fluids: 05/14/24 Time of Last Intake of Fluids: 22:00 Date of Last Intake of Solid Food: 05/14/24 Time of Last Intake of Solid Foods: 22:00 Notes The planned sedation has been discussed with the patient. Informed Consent was obtained. I have identified the patient, determined the appropriateness of sedation and have assessed the patient immediately prior to the procedure. All medicine(s) and interventions are by my order. [facility] Procedure Codes (Charges) Indication for Procedure Indication for procedure: unstable angina
[2024-05-15] MEDS: HEPARIN (PORCINE) 1000 UNIT/ML 10 ML (CATH LAB USE ONLY) ONE (12:43)
[2024-05-15] MEDS: fentaNYL citrate PF 100 MCG/2 ML VIAL ONE (12:43)
[2024-05-15] MEDS: niCARdipine 2,000 MCG/20 ML SYR ONE (12:44)
[2024-05-15] MEDS: NITROGLYCERIN/D5W 100MCG/ML 20ML SYR ONE (12:44)
[2024-05-15] MEDS: OPTIRAY 350 ONE (12:44)
[2024-05-15] MEDS: MIDAZOLAM HCL 1 MG/ML 2ML VIAL ONE (12:44)
--- NOTE | 2024-05-15 12:52 | Post Anesthesia Assessment ---
Date of Service May 15, 2024 Post Sedation Assessment Vital Signs Temp Pulse Pulse Resp BP BP Pulse Ox 05/15/24 08:21 36.5 C 70 18 131/73 96 05/15/24 08:00 70 14 114/78 95 05/15/24 07:28 61 05/15/24 07:20 95 05/15/24 03:00 36.8 C 79 18 100/62 95 05/15/24 00:00 78 05/14/24 23:44 79 19 95 05/14/24 22:00 05/14/24 21:14 36.7 C 79 130/83 97 05/14/24 21:12 86 05/14/24 21:01 82 18 161/93 H 96 05/14/24 20:00 77 14 116/84 96 05/14/24 18:01 75 18 109/82 97 05/14/24 16:25 72 15 118/77 96 05/14/24 16:07 70 05/14/24 14:49 36.7 C 77 18 112/76 98 O2 Del Method 05/15/24 08:21 Room Air 05/15/24 08:00 Room Air 05/15/24 07:28 05/15/24 07:20 05/15/24 03:00 Room Air 05/15/24 00:00 05/14/24 23:44 05/14/24 22:00 Room Air 05/14/24 21:14 Room Air 05/14/24 21:12 05/14/24 21:01 Room Air 05/14/24 20:00 Room Air 05/14/24 18:01 Room Air 05/14/24 16:25 Room Air 05/14/24 16:07 05/14/24 14:49 Room Air Recovery Score Activity: Moves 4 extremities Respiration: Deep Breath/Cough Circulation: +/-20% PreAnes Value Consciousness: Fully Awake Oxygen Saturation: > 92% On Room Air Discharge Sedation Level of Care: Fast Track Phase II Post Sedation Plan On clinical assessment, the patient appears to have tolerated the sedation without complications. Patient is recovering as anticipated. Patient will continue to be monitored by nursing and may be discharged when sedation discharge criteria are met per below protocol. Upon Completions of procedure up to 15 minutes continue every 5 minute vital signs and the P.A.R. score; then discharge to a Phase I or Fast Track to Phase II per the following guidelines: * Discharge Patient to appropriate Phase II area if PAR is 8 or greater or return to pre- procedure baseline. The post - procedure orders will be as directed. * If PAR score is less than 8 or not return to pre-procedure baseline then patient will follow Phase I monitoring till PAR is reached for Phase II. The Phase I may be done in procedure room or may call to secure a Phase I area. * If naloxone or flumazenil are used for reversal, hold in Phase I for continued monitoring from when last reversal dose was given for a minimum of 60 minutes or longer pending the nurse and/or physician discretion of patient condition before discharge to Phase II. Please call the Sedation Physician to re-evaluate and complete post-note for discharge to Phase II area. Do NOT discharge from procedure sedation or Phase 1 until post- sedation evaluation note is complete by procedure /sedation MD Sedation Discharge Instructions to be given to the patient at discharge to home. [facility] Procedure Codes (Charges) Indication for Procedure Indication for procedure: unstable angina Sedation/Anesthesia Procedure 1: Sedation/Anesthesia: 17361 Mod Sedation by the same physician;Init15 Min Child Age 5 & Up (initial 15 min, start 1232, end 1240)
[2024-05-15] MEDS: ROSUVASTATIN CALCIUM 20 MG TAB PO SCH (13:28)
[2024-05-15] MEDS: CYANOCOBALAMIN (B-12) 500 MCG TABLET PO SCH (13:29)
[2024-05-15] MEDS: lisinopril 20 MG TAB PO SCH (13:29)
[2024-05-15] MEDS: PANTOprazole 40 MG TAB PO SCH (13:29)
[2024-05-15] MEDS: ATENOLOL 25 MG TABLET PO SCH (13:30)
[2024-05-15] MEDS: DULoxetine HCL 60 MG CAP PO SCH (13:30)
[2024-05-15] MEDS: ASPIRIN 81 MG ECTAB PO SCH (13:42)
[2024-05-15] MEDS: traMADol HCL 50 MG TABLET PO SCH (13:42)
[2024-05-15] MEDS: ASPIRIN 81 MG CHEW ONE (13:47)
--- NOTE | 2024-05-15 14:34 | Hospitalist Progress Note ---
Date of Service May 15, 2024 Assessment & Plan (1) Dyspnea on minimal exertion: Plan: 63 year old male with history of Paroxysmal Atrial fibrillation, s/p Loop recorder placement, HTN, DM 2, SEN on CPAP, History of brain aneurysm s/p coiling 2006, presenting with progressive shortness of breath x 2 weeks. Dyspnea with minimal exertion with diaphoresis Unclear Etiology DD: Recent URI completed Augmentin course Mild coronary artery disease Troponin negative x 2 --S/P Cardiac Cath: Per Cardiology: study demonstrated mild diffuse coronary atherosclerosis without obstructive disease. Reduced flow velocities suggestive of microvascular disease. --ECHO: Left ventricle is normal in size. Mild concentric LVH. Left ventricle wall motion is normal. EF 60 to 65%. Grade 1 diastolic dysfunction. Mild focal calcification of the noncoronary cusp of aortic valve. Mild aortic root dilatation. --EKG showing nonspecific T wave abnormality in anterolateral leads -- Continue aspirin, rosuvastatin --Atenolol changed to metoprolol succinate 12.5 mg daily --Lisinopril dose decreased to 10 mg daily --Added amlodipine 2.5 mg daily Appreciate cardiology input: Advised medical management Plan to discharge home today D-dimer elevated 1030 CT chest negative for PE Doppler ultrasound of the legs:No evidence of deep vein thrombosis in the bilateral lower extremities. Abnormal CT chest: Pleural/subpleural nodules/scattered granuloma ? Likely due to recent URI --CT Chest:There are nonspecific pleural and subpleural nodules. There are also scattered granulomas and a partially calcified subcarinal lymph node. All changes could reflect previous infection. In the absence of a prior study to compare, follow-up recommended in 6 to 12 months. -- Advised to get a repeat CT in 6 months and follow-up as outpatient History of paroxysmal A-fib Status post loop recorder placement last year Currently in sinus rhythm Continue metoprolol, aspirin Requip discontinued given history of paroxysmal A-fib Diabetes type 2 HbA1c 7.3 Hold usual metformin Placed on insulin sliding scale while hospitalized Monitor blood glucose levels Obstructive sleep apnea Continue CPAP at bedtime History of brain aneurysm status post coiling 2006 Follow-up as outpatient Restless leg syndrome Requip discontinued as above DVT prophylaxis SCDs for now Code Status Full code Disposition Home Admission and Anticipated Discharge Date Admission Date: May 14, 2024 Subjective Patient is seen and examined at bedside Reports having dyspnea on exertion associated with diaphoresis Cough improving No other complaints Denies any chest pain, nausea, vomiting, abdominal pain, diarrhea Discussed with cardiology today Had cardiac catheterization earlier today Prefers to be discharged home today Review of Systems Review of Systems: All systems reviewed & are unremarkable except as noted in Subjective Physical Exam Physical Exam: Physical Exam: Vitals signs as noted above General Appearance:Obese, no apparent distress Head: normocephalic, Atraumatic Eyes: normal inspection, EOMI Neck: supple, Trachea midline Respiratory/Chest: Normal breath sounds, CTA, No accessory muscle use Cardiovascular: S1, S2, No murmur Abdomen/GI:Soft, Non tender, Bowel sounds present Extremities/Musculoskeletal:normal inspection, no edema Neurologic/Psych:AAOX3, grossly no focal neurological deficits Skin: normal color, warm Results & Data Results & Data Vital Signs (Past 12 Hours) Vital Signs Temp Pulse Pulse Resp BP Pulse Ox O2 Del Method 05/15/24 14:28 67 18 108/73 95 Room Air 05/15/24 14:00 73 18 116/77 96 Room Air 05/15/24 13:30 68 18 103/69 96 Room Air 05/15/24 13:24 36.8 C 74 20 114/76 95 Room Air 05/15/24 13:07 73 18 119/75 95 Room Air 05/15/24 12:49 18 133/78 95 Room Air 05/15/24 08:21 36.5 C 70 18 131/73 96 Room Air 05/15/24 08:00 70 14 114/78 95 Room Air 05/15/24 07:28 61 05/15/24 07:20 95 05/15/24 03:00 36.8 C 79 18 100/62 95 Room Air Laboratory Results Short CBC 05/14/24 05/15/24 Range/Units 15:00 06:06 WBC 8.05 5.40 (4.8-10.8) K/ul Hgb 15.6 14.3 (14.0-18.0) g/dl Hct 46.4 41.6 L (42.0-52.0) % Plt Count 345 257 (130-400) K/uL BMP 05/14/24 05/15/24 15:00 06:06 Sodium 134 L 134 L Potassium 4.5 4.4 Chloride 99 102 Carbon Dioxide 26 24 BUN 15 17 Creatinine 1.29 1.16 Glucose 104 H 119 H Calcium 9.8 9.2 Liver Function 05/14/24 Range/Units 15:00 Total Bilirubin 0.8 (0.2-1.0) mg/dl AST 35 (13-39) U/L ALT 34 (7-52) U/L Alkaline Phosphatase 85 (34-104) U/L Albumin 4.5 (3.4-5.0) gm/dl
--- NOTE | 2024-05-15 14:39 | Communication Note ---
Date of Service: May 15, 2024 Patient seen postcardiac catheterization. Study demonstrated mild diffuse coronary atherosclerosis without obstructive disease. Reduced flow velocities suggestive of microvascular disease. Recommendations: Optimize medical therapies. Discontinue atenolol Begin metoprolol succinate at 12.5 mg/day Reduce lisinopril to 10 mg p.o. daily Add amlodipine 2.5 mg p.o. daily Continue aspirin and statin Discontinue Requip given history of paroxysmal atrial fibrillation and current presentation Patient follows with cardiology, Teja Silva.
[2024-05-15] MEDS ORDERED: Nursing to Pharmacy Communication SCH (14:45)
--- NOTE | 2024-05-15 15:09 | Discharge Summary ---
Date of Service May 15, 2024 Admission HPI Per Admitting Provider 63 year old male with history of Paroxysmal Atrial fibrillation, s/p Loop recorder placement, HTN, DM 2, SEN on CPAP, History of brain aneurysm s/p coiling 2006, presenting with progressive shortness of breath x 2 weeks. 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 He takes Atenolol and Aspirin 81mg po daily. He states that he has been having progressive shortness of breath for the past 2 weeks, even with minimal exertion. During [place], while carving turkey, patient developed shortness of breath- "gasping", associated with profuse diaphoresis and pallor, according to his . Resting alleviates the shortness of breath. Patient prompted by PCP to go to ER for evaluation. At the ER, patient was received with stable vital signs. Troponin negative EKG showing nonspecific T wave flattening in the lateral leads D-dimer elevated at 1090 CT scan of the chest: Negative for PE, positive for nonspecific pleural and subpleural nodules, scattered granulomas Hospitalist consulted for cardiac evaluation. On exam, patient seen resting in bed, comfortable, not in distress Denies active chest pain, shortness of breath, palpitations, dizziness Admission Exam Per Admitting Provider General- oriented x 3, not in distress, speaks in sentences with no effort or accessory muscle use Head- atraumatic Eyes- PERRL, EOMI, anicteric ENT- oropharynx clear Neck- supple, no JVD, no adenopathy, no thyromegaly; carotids +2/2, no bruits appreciated Lungs- clear to auscultation bilaterally, no rales/wheezes Heart- normal rate, regular rhythm; no murmur, no gallop, no rub appreciated Abdomen- normal bowel sounds, nondistended, soft, nontender, no masses or hepatosplenomegaly Extremities- no pretibial edema, no calf tenderness; peripheral pulses intact Neuro- alert, oriented x 3; CN 2-12 grossly intact; motor 5/5 bilaterally;sensation 100% on all extremities; no other gross focal neurologic deficits Skin- warm & dry Principal Diagnosis Dyspnea on exertion Mild coronary artery disease Pleural and subpleural lung nodule--incidental finding on CT scan Discharge Data Allergies Allergy/AdvReac Type Severity Reaction Status Date / Time topiramate [From Topamax] AdvReac Intermediate Hives Unverified 05/14/24 17:54 Consultations 05/14/24 18:01 ED Decision to Admit Stat 05/14/24 21:34 Consult Cardiology Routine Procedures Performed Operation Date: 05/15/24 11:00 Actual Procedures p Cineradiography w/Routine Exam - Adair Platt MD, PhD p Cath, Coronaries ONLY (no LV) - Adair Platt MD, PhD Laboratory Results WBC 5.40 K/ul (4.8-10.8) 05/15/24 06:06 RBC 5.05 M/uL (4.70-6.10) 05/15/24 06:06 Hgb 14.3 g/dl (14.0-18.0) 05/15/24 06:06 Hct 41.6 % (42.0-52.0) L 05/15/24 06:06 MCV 82.4 fL (80.0-100.0) 05/15/24 06:06 MCH 28.3 pg (25.0-34.0) 05/15/24 06:06 MCHC 34.4 g/dL (32.0-36.0) 05/15/24 06:06 RDW Std Deviation 38.3 fL (36.4-46.3) 05/15/24 06:06 RDW Coeff of Zeenat 12.7 % (11.5-14.5) 05/15/24 06:06 Plt Count 257 K/uL (130-400) 05/15/24 06:06 MPV 10.1 fL (9.4-12.4) 05/15/24 06:06 Immature Gran % (Auto) 0.4 % 05/15/24 06:06 Neut % (Auto) 56.7 % 05/15/24 06:06 Lymph % (Auto) 29.4 % 05/15/24 06:06 Gregory % (Auto) 9.6 % 05/15/24 06:06 Eos % (Auto) 2.8 % 05/15/24 06:06 Baso % (Auto) 1.1 % 05/15/24 06:06 Neut # (Auto) 3.06 K/uL (1.40-6.50) 05/15/24 06:06 Lymph # (Auto) 1.59 K/uL (1.20-3.40) 05/15/24 06:06 Gregory # (Auto) 0.52 K/uL (0.11-0.59) 05/15/24 06:06 Eos # (Auto) 0.15 K/uL (0.00-0.50) 05/15/24 06:06 Baso # (Auto) 0.06 K/uL (0.00-0.20) 05/15/24 06:06 Immature Gran # (Auto) 0.02 K/uL (0.01-0.20) 05/15/24 06:06 D-Dimer 1090 ug/L FEU (0-500) H* 05/14/24 15:03 Sodium 134 mmol/L (136-145) L 05/15/24 06:06 Potassium 4.4 mmol/L (3.5-5.1) 05/15/24 06:06 Chloride 102 mmol/L (98-107) 05/15/24 06:06 Carbon Dioxide 24 mmol/L (21-32) 05/15/24 06:06 Anion Gap 8 (3-11) 05/15/24 06:06 BUN 17 mg/dl (6-23) 05/15/24 06:06 Creatinine 1.16 mg/dl (0.6-1.4) 05/15/24 06:06 Est Cr Clr Drug Dosing 77.6 ml/min 05/15/24 06:06 eGFR 70.77 05/15/24 06:06 BUN/Creatinine Ratio 14.7 (10-20) 05/15/24 06:06 Glucose 119 mg/dl (70-99(Fasting)) H 05/15/24 06:06 POC Glucose 117 mg/dl (70-99) H 05/15/24 13:25 Estimat Average Glucose 163 mg/dl 05/15/24 06:06 Hemoglobin A1c 7.3 % (4.5-5.6) H 05/15/24 06:06 Calcium 9.2 mg/dl (8.6-10.3) 05/15/24 06:06 Magnesium 2.2 mg/dl (1.7-2.4) 05/14/24 15:00 Total Bilirubin 0.8 mg/dl (0.2-1.0) 05/14/24 15:00 AST 35 U/L (13-39) 05/14/24 15:00 ALT 34 U/L (7-52) 05/14/24 15:00 Alkaline Phosphatase 85 U/L (34-104) 05/14/24 15:00 Troponin I High Sens 5.5 pg/ml (0-20) 05/15/24 06:06 Total Protein 8.0 gm/dl (6.0-8.3) 05/14/24 15:00 Albumin 4.5 gm/dl (3.4-5.0) 05/14/24 15:00 Globulin 3.5 gm/dl (2.5-4.0) 05/14/24 15:00 Albumin/Globulin Ratio 1.3 (0.9-2) 05/14/24 15:00 Adenovirus (PCR) Not Detected (NotDetected) 05/14/24 15:00 B. pertussis DNA (PCR) Not Detected (NotDetected) 05/14/24 15:00 B.parapertussis DNA PCR Not Detected (NotDetected) 05/14/24 15:00 C. pneumoniae DNA (PCR) Not Detected (NotDetected) 05/14/24 15:00 Coronavirus OC43 (PCR) Not Detected (NotDetected) 05/14/24 15:00 Coronavirus HKU1 (PCR) Not Detected (NotDetected) 05/14/24 15:00 Coronavirus 229E (PCR) Not Detected (NotDetected) 05/14/24 15:00 SARS-CoV-2 (PCR) Not Detected (NotDetected) 05/14/24 15:00 Coronavirus NL63 (PCR) Not Detected (NotDetected) 05/14/24 15:00 Human Metapneumovir PCR Not Detected (NotDetected) 05/14/24 15:00 Influenza Type A (PCR) Not Detected (NotDetected) 05/14/24 15:00 Influenza Type B (PCR) Not Detected (NotDetected) 05/14/24 15:00 M. pneumoniae (PCR) Not Detected (NotDetected) 05/14/24 15:00 Parainfluenza 1 (PCR) Not Detected (NotDetected) 05/14/24 15:00 Parainfluenza 2 (PCR) Not Detected (NotDetected) 05/14/24 15:00 Parainfluenza 3 (PCR) Not Detected (NotDetected) 05/14/24 15:00 Parainfluenza 4 (PCR) Not Detected (NotDetected) 05/14/24 15:00 RSV (PCR) Not Detected (NotDetected) 05/14/24 15:00 Entero/Rhino (PCR) Not Detected (NotDetected) 05/14/24 15:00 Impressions Chest X-Ray 05/14/24 14:53 XR chest 1V portable CLINICAL HISTORY: sob TECHNIQUE: Single frontal radiograph of the chest was obtained. Comparison: None available at the time of this dictation. FINDINGS: Battery-powered device is noted in the chest wall. The cardiomediastinal silhouette is normal. The lungs are clear. No evidence of pleural effusion or pneumothorax. IMPRESSION: No acute abnormalities and in particular no radiographic evidence of pneumonia. ACT 112: Negative or not required by law. Electronically signed by: Cristian Ryan M.D. 05/14/2024 3:44 PM Chest CTA 05/14/24 16:30 EXAM: CT Angiography Chest With Intravenous Contrast INDICATION: Weakness. Diaphoresis. TECHNIQUE: Axial computed tomographic angiography images of the chest with intravenous contrast. Sagittal and coronal reformatted images were created and reviewed. This CT exam was performed using one or more of the following dose reduction techniques: automated exposure control, adjustment of the mA and/or kV according to patient size, and/or use of iterative reconstruction technique. MIP reconstructed images were created and reviewed. CONTRAST: 118ml of Optiray 320 was administered intravenously. COMPARISON: No relevant prior studies available. FINDINGS: Pulmonary arteries: No abnormality noted. No pulmonary embolism. Aorta: No acute change noted. No thoracic aortic aneurysm or dissection. Lungs and pleural spaces: Diffuse 2 to 3 mm pleural and subpleural nodules noted throughout both lungs. No layering pleural effusion. No pneumothorax. Scattered calcified granulomata noted in the lungs. There is mild dependent atelectasis in the lower lobes. Heart: No abnormality noted. No cardiomegaly. No significant pericardial effusion. No evidence of RV dysfunction. Bones/joints: Old left rib fractures. Degenerative changes in the spine. Soft tissues: No abnormality noted. Lymph nodes: There is a 1.5 cm short axis dimension subcarinal node with eccentric calcification. No pathologically enlarged nodes. IMPRESSION: 1. No pulmonary embolus noted. 2. There are nonspecific pleural and subpleural nodules. There are also scattered granulomas and a partially calcified subcarinal lymph node. All changes could reflect previous infection. In the absence of a prior study to compare, follow-up recommended in 6 to 12 months. ACT 112: Negative or not required by law. Electronically signed by Estela Ortiz 05-14-2024 5:[address] 05/14/24 16:30 EXAM: CT Head Without Intravenous Contrast INDICATION: Weakness. TECHNIQUE: Axial computed tomography images of the head/brain without intravenous contrast. Sagittal and/or coronal reformats are provided. Sagittal and coronal reformatted images were created and reviewed. This CT exam was performed using one or more of the following dose reduction techniques: automated exposure control, adjustment of the mA and/or kV according to patient size, and/or use of iterative reconstruction technique. COMPARISON: 06/01/2021 FINDINGS: Limitations: None. Brain and extra-axial spaces: No abnormality noted. No hemorrhage. No significant white matter disease. No edema. No ventriculomegaly. Bones/joints: No acute changes. Soft tissues: No significant abnormality noted. Vasculature: Artifact from aneurysm clip in the region of the anterior communicating artery limits assessment of surrounding structures. Sinuses: Mild mucosal thickening right ethmoid air cells. No sinus fluid. Mastoid air cells: No mastoid effusion. Orbits: No significant abnormality noted. IMPRESSION: 1. Mild mucosal thickening right ethmoid air cells. No sinus fluid. 2. No acute change in the brain. ACT 112: Negative or not required by law. Electronically signed by Estela Ortiz 05-14-2024 5:27 PM Venous Doppler Study 05/14/24 19:19 Exam(s): US VENOUS BILATERAL LOWER EXTREMITIES EXAM: US Duplex Bilateral Lower Extremities Veins CLINICAL HISTORY: Reason for exam: elevated d dimer, leg pain. TECHNIQUE: Real-time duplex ultrasound scan of the bilateral lower extremity veins integrating B-mode two-dimensional vascular structure, Doppler spectral analysis, color flow Doppler imaging and compression. COMPARISON: No relevant prior studies available. FINDINGS: Right deep veins: Unremarkable. The visualized deep veins of the right lower extremity are compressible with color flow. No visualized thrombus. Right superficial veins: Unremarkable. Left deep veins: Unremarkable. The visualized deep veins of the left lower extremity are compressible with color flow. No visualized thrombus. Left superficial veins: Unremarkable. Soft tissues: No acute findings. IMPRESSION: No evidence of deep vein thrombosis in the bilateral lower extremities. Electronically signed by: Joshua Puentes MD 05/14/24 21:24 PM Ordered Studies 05/14/24 16:30 CT angio chest PE protocol Stat CT head/brain wo con Stat 05/14/24 19:19 US venous doppler LE BI Urgent 05/15/24 09:38 CL Cath Imgs for PACS use only Stat Hospital Course (1) Dyspnea on minimal exertion: 63 year old male with history of Paroxysmal Atrial fibrillation, s/p Loop recorder placement, HTN, DM 2, SEN on CPAP, History of brain aneurysm s/p coiling 2006, presenting with progressive shortness of breath x 2 weeks. Dyspnea with minimal exertion with diaphoresis Unclear Etiology DD: Recent URI completed Augmentin course Mild coronary artery disease Troponin negative x 2 --S/P Cardiac Cath: Per Cardiology: study demonstrated mild diffuse coronary atherosclerosis without obstructive disease. Reduced flow velocities suggestive of microvascular disease. --ECHO: Left ventricle is normal in size. Mild concentric LVH. Left ventricle wall motion is normal. EF 60 to 65%. Grade 1 diastolic dysfunction. Mild focal calcification of the noncoronary cusp of aortic valve. Mild aortic root dilatation. --EKG showing nonspecific T wave abnormality in anterolateral leads -- Continue aspirin, rosuvastatin --Atenolol changed to metoprolol succinate 12.5 mg daily --Lisinopril dose decreased to 10 mg daily --Added amlodipine 2.5 mg daily Appreciate cardiology input: Advised medical management Plan to discharge home today D-dimer elevated 1030 CT chest negative for PE Doppler ultrasound of the legs:No evidence of deep vein thrombosis in the bilateral lower extremities. Abnormal CT chest: Pleural/subpleural nodules/scattered granuloma ? Likely due to recent URI --CT Chest:There are nonspecific pleural and subpleural nodules. There are also scattered granulomas and a partially calcified subcarinal lymph node. All changes could reflect previous infection. In the absence of a prior study to compare, follow-up recommended in 6 to 12 months. -- Advised to get a repeat CT in 6 months and follow-up as outpatient History of paroxysmal A-fib Status post loop recorder placement last year Currently in sinus rhythm Continue metoprolol, aspirin Requip discontinued given history of paroxysmal A-fib Diabetes type 2 HbA1c 7.3 Hold usual metformin Placed on insulin sliding scale while hospitalized Monitor blood glucose levels Obstructive sleep apnea Continue CPAP at bedtime History of brain aneurysm status post coiling 2006 Follow-up as outpatient Restless leg syndrome Requip discontinued as above DVT prophylaxis SCDs for now Code Status Full code Disposition Home Total Time Total Time Spent Total Time Spent (In Minutes): 39 minutes Discharge Plan Discharge Items Patient Disposition: Home - Self-Care Reason For Visit: DYSPNEA ON EXCERTION Discharge Diagnosis: Dyspnea on exertion Mild coronary artery disease Pleural and subpleural lung nodule--incidental finding on CT scan Activity: Per Instructions section Exercise/Sports: Gradually increase as tolerated Non-emergency contact: Primary Care Provider Call non-emergency contact if: you have any medication questions, your symptoms worsen, your pain is concerning for you and you have a fever Follow-up/Referrals: Luis Jules MD [Primary Care Provider] - Diet: Carb Consistent or DM2 and Heart Healthy Add Attending Provider Instructions: Follow-up with your primary care physician Dr. Jules in 1 week Follow-up with your station superintendent Dr. Sanabria as needed -- Obtain repeat CT chest in 6 months for further evaluation of peripheral nodules Seek immediate medical attention if your symptoms reoccur or worsen Please take all medications as instructed on discharge list below. Please call if you have any questions or problems. You can reach a [facility] hospitalist on duty at [facility] 24 hours a day by calling [phone] Add Inspector [facility] Facilities Provider Instructions: ACTIVITY RECOMMENDATIONS: Excess manipulation of the wrist should be avoided for the next 24-48 hours. * No lifting over 2 pounds (approximately a 1/2 gallon of milk) with the utilized arm for 24 hours. * No strenuous activity such as bowling or tennis for 3 days. * Keep the site of the procedure covered with a bandage for 24 hours. *You may shower the day after the procedure. Do not take a tub bath or submerge the puncture site in water for the next 3 days. *Do not operate any motorized equipment for 3 days. SPECIAL CARE INSTRUCTIONS: The site may be slightly bruised and sore following your procedure. Should any of the following occur, contact the Dr. who performed your procedure. 1. Redness/inflammation, swelling, chills, or fever, or colored drainage at procedure site within 3-7 days after your procedure. 2. Coldness, discoloration, ongoing numbness, severe pain, or swelling. Expect mild tingling of hand and tenderness at the puncture site for up to three days. If this persists beyond three days, or other symptoms develop, notify the Dr. who performed your procedure. BLEEDING: If the procedure site on your wrist begins to bleed, do not panic 1. Place 1 or 2 fingers firmly just slightly above the insertion site to stop the bleeding. You may be able to feel your pulse as you hold pressure. 2. Lift your finger after 5 minutes to see if the bleeding has stopped. 3. Once the bleeding has stopped, gently wipe the wrist area clean with a bandage. * If the bleeding from your wrist does not stop after 10 minutes, or if there is a large amount of bleeding or spurting, call 911 (do not drive yourself to the hospital). SKIN IRRITATION: * You may experience some redness and/or swelling in the area where radiation was administered. If any skin irritation occurs, please contact your family physician. FOLLOW UP VISIT: Keep any scheduled doctor appointments. Pending Studies at Discharge: No Stand-Alone Forms: My [facility], Smoking Cessation Medications and DC Order Prescriptions: New amlodipine [Norvasc] 5 mg Tablet 2.5 mg PO QAM Qty: 30 1RF lisinopril 10 mg Tablet 10 mg PO DAILY Qty: 30 1RF metoprolol succinate 25 mg Tablet Extended Release 24 Hr 12.5 mg PO QAM Qty: 30 0RF Continued metformin 500 mg tablet 500 mg PO BID magnesium oxide 400 mg (241.3 mg magnesium) tablet 400 mg PO HS rosuvastatin 20 mg tablet 20 mg PO DAILY tramadol 50 mg tablet 50 - 100 mg PO UD Rx Instructions: Take 50mg by mouth in the morning and 100mg by mouth in the evening. duloxetine 60 mg capsule,delayed release(DR/EC) 60 mg PO DAILY cyanocobalamin (vitamin B-12) [Vitamin B-12] 1,000 mcg Tablet 1,000 mcg PO DAILY omeprazole 40 mg capsule,delayed release(DR/EC) 40 mg PO DAILY aspirin 81 mg Tablet,Delayed Release (Dr/Ec) 81 mg PO DAILY eszopiclone 2 mg tablet 2 mg PO HS Discontinued lisinopril 20 mg tablet 20 mg PO DAILY ropinirole 0.5 mg tablet 0.5 mg PO DAILY atenolol 25 mg tablet 25 mg PO DAILY Discharge Orders: Discharge Order (Routine); Ordered 05/15/24 Ordered By: Yandel Jeong Admission Data Admit Date/Time: 05/14/24 18:52 Attending Provider: Yandel Jeong Admit Provider: Avinash Fernandez Primary Care Provider: Luis Jules Other Providers: Avinash Fernandez
--- NOTE | 2024-05-15 15:54 | Electrocardiogram Report ---
Test Reason : Blood Pressure : */* mmHG Vent. Rate : 68 BPM Atrial Rate : 68 BPM P-R Int : 188 ms QRS Dur : 86 ms QT Int : 400 ms P-R-T Axes : 41 40 58 degrees QTcB Int : 425 ms Normal sinus rhythm Normal ECG When compared with ECG of 14-May-2024 14:57, Nonspecific T wave abnormality, improved in Anterolateral leads Confirmed by Alexys Martino ([id number]) on 05/15/2024 3:53:59 PM Referred By: REFERRED SELF Confirmed By: Alexys Martino
[2024-05-15] MEDS ORDERED: INSULIN ASPART PER UNIT CHARGE SC SCH (16:30)
--- NOTE | 2024-05-15 16:36 | Cardiac Catheterization ---
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 Cardiac Status Clinical evaluation leading to the procedure CAD Presenation: Unstable angina Anginal Classification: CCS IV Heart Failure: No Cardiogenic Shock within 24 Hours: No Cardiac Arrest within 24 Hours: No Imaging Studies Past 6 Months: No Stress Studies Past 6 Months: No Coronary Anatomy Left Main (% Stenosis): Normal LAD (% Stenosis): Normal D1 (% Stenosis): Normal Circumflex (% Stenosis): Normal L PL1 (% Stenosis): Normal RCA (% Stenosis): Proximal (Less than 20%) R PDA (% Stenosis): Normal R PL1 (% Stenosis): Normal Ramus (% Stenosis): Normal Diagnostic Physicians Name: Adair Platt MD, PhD Closure Device Percutaneous Entry Location: Radial Closure Device: Radial Band Recommendations: Medical Therapy and/or Counseling Cardiac Cath Procedure Full Procedure Date May 15, 2024 Pre-Procedure Diagnosis Pre-Procedure Diagnosis: Acute Coronary Syndrome AUC Score AUC Score: 07 Post-Procedure Diagnosis Post-Procedure Diagnosis: Normal Coronary Arteries Procedure(s) Performed Procedure(s) Performed: Coronary Angiography Clinical Data Abstractor Adair Platt MD, PhD Estimated Blood Loss Estimated Blood Loss: 5cc Medication(s) Medication(s): Fentanyl, Heparin, Lidocaine 1%, Nicardipine, Nitroglycerin and Versed Summary of Findings Brief description: Patient was brought to the cardiac catheterization suite where he was shaved and prepped in a sterile fashion. Sedated using IV Versed and fentanyl. Soft tissues of the right wrist were anesthetized using 2 mL of 1% Xylocaine. The right radial artery was accessed using modified Seldinger technique and a 6 [place] radial artery glide sheath was placed. Patient was provided anticoagulation with IV heparin and antispasmodics including nitroglycerin and nicardipine. All catheters were advanced and exchanged over a 0.035 J-tip wire. Left coronary angiography in orthogonal views with a 5 [place] 4 diagnostic catheter. Right coronary angiography in orthogonal views with a 5 [place] 4 diagnostic catheter. Diagnostic catheters were removed. Radial artery sheath was removed. Hemostasis was obtained using a TR band. Patient remained hemodynamically stable and asymptomatic. He was returned to the recovery area. This ended the case. Coronary angiography findings: HEY-rhfvt-wrhmgxy vessel trifurcating into LAD, circumflex, and ramus. No disease. OYR-wxyij-qdpxvmz and transapical. Provides a septal branch and a large branching first diagonal. There is no more than mild luminal irregularities in the LAD and its branches. FNs-emgtw-bekudch and nondominant. Travels in AV groove giving first an atrial branch and then distally a large posterolateral. There is no more than mild luminal irregularities in the circumflex and its branches. Ramus-large caliber branching vessel. Mild luminal irregularities. RCA-this is large caliber and dominant. Bifurcates distally into a large PDA and a large posterolateral branch. Proximal RCA has less than 20% stenosis. There is no more than mild luminal irregularities in the remainder of the RCA and its branches. Note: There is sluggish flow (MEAGHAN II) in both the right and left coronary systems. Summary: 1. Normal epicardial coronary arteries. 2. Sluggish coronary flow, reason unknown. 3. Continue workup for nonanginal symptoms. Hemodynamics Rest Ao:: 91/66 mmHg Final Ao: 99/70 mmHg LV: Not performed Recommendations Recommendations: Medical Therapy and/or Counseling Radiation Exposure (mGy) 817 mGy, fluoroscopy time 1.4 minutes Contrast (mls) 60 cc Anesthesia 1 mg Versed, 25 mcg fentanyl IV. Start time 1232, end time 1240 Procedural Complication(s) None Disposition Recovery Room\PACU I attest to the content of the Intraoperative Record and any orders documented therein. Any exceptions are noted below. [facility] Card Cath Procedure Codes Cardiac Catheterization Procedure 1: Cardiovascular Cath Procedures: 60416 Coronaries Moderate Sedation Procedure 1: Sedation/Anesthesia: 19007 Mod Sedation by the same physician;Init15 Min Child Age 5 & Up (Initial 15 minutes, start time 1232, end time 1240) PG Care Time/CCT Total # of Minutes Spent Total Time Spent with Patient: Total time spent is greater than 50% in coordination of care (as documented) at patient's floor/unit and/or counseling patient:
[2024-05-16] MEDS ORDERED: METOPROLOL SUCC 25MG EXT REL TAB PO SCH (09:00)
[2024-05-16] MEDS ORDERED: lisinopril 10 MG TAB PO SCH (09:00)
[2024-05-16] MEDS ORDERED: amLODIPine BESYLATE 5 MG TAB PO SCH (09:00)
== END 2024-05-15 16:25 | disposition home or self-care (01) | DRG 287 ==
LOC: ED 14:37 → SUATTDRO 18:52 → 4W 18:52
PROC: CLB.CCO (2024-05-15 11:00)